=== PATIENT | female | born 1955 | race Caucasian/White ===

== ENCOUNTER 2022-01-04 11:11 | Day surgery (SDC) | payer OTHER ==
[2022-01-03 11:13] LABS: COVID AG,FIA SOURCE NASOPHARYNGEAL
[~2022-01-04] VITALS: Ht 152.4 cm; Wt 54.1 kg
[~2022-01-04 11:11] MED LIST: ACET-2895 PO; AMLO5TAB66 PO; ASPI-1450 PO; ATOR40TA71 PO; CEPH500C2 PO; DULO-114 PO; GABA-1181 PO; GABA600T10 PO; INSLAN SQ; INSU100I15 SQ; LOPE2CAP PO; LOSA1TAB40 PO; METO-408 PO; OMEP20CA12 PO; SITA100 PO; SODIUM CHLORIDE 0.9% 1,000 ML IV ONE; SODIUM CHLORIDE 0.9% 1,000 ML ONE
[2022-01-04] MEDS ORDERED: LIDOCAINE/PF 2% 5 ML VIAL IM ONE (12:00)
[2022-01-04] MEDS ORDERED: PROPOFOL 1% 20 ML VIAL IVP ONE (12:00)
[2022-01-04] MEDS ORDERED: DEXTROSE 5%-0.9% SODIUM CHL 1,000 ML IV ONE ×2 (12:24→12:30)
[2022-01-04 12:32] LABS: GLUCOMETER DEV NAME(LOC) SDS.; GLUCOSE,POINT OF CARE 70 MG/DL (70-110)
== END 2022-01-04 15:05 | disposition home or self-care (01) ==
LOC: SURGERY 11:11
PROVIDERS: ATTEND Internal Medicine Gastroenterology
DX: Z12.11 Encounter for screening for malignant neoplasm of colon (principal); D12.2 Benign neoplasm of ascending colon; D12.5 Benign neoplasm of sigmoid colon; I10 Essential (primary) hypertension; E11.9 Type 2 diabetes mellitus without complications; Z79.899 Other long term (current) drug therapy; Z98.890 Other specified postprocedural states; K64.8 Other hemorrhoids; Z20.822 Contact with and (suspected) exposure to COVID-19
CPT/HCPCS: 87426; 45385; 45380; 82962; 88305; C9803; C1769; J2704; J3490; J7042; J7030